=== PATIENT | female | born 1995 | race Caucasian/White ===

== ENCOUNTER 2020-12-27 16:13 | Inpatient (IN) | payer MEDICAID, OTHER ==
[~2020-12-27] VITALS: Ht 167.6 cm; Wt 106.2 kg
[2020-12-27 18:14] LABS: Basophils # (auto) 0 10 ^3/uL (0-0.2); Basophils % (auto) 0.5 % (0.0-2.0); Eosinophils # (auto) 0.2 10 ^3/uL (0-0.8); Eosinophils % (auto) 1.8 % (0.0-7.0); Hematocrit 39.9 % (36.0-46.0); Hemoglobin 13.9 g/dL (12.2-16.2); Lymphocytes # (auto) 2.5 10 ^3/uL (0.4-5.4); Lymphocytes % (auto) 23.5 % (10.0-50.0); Mean Corpuscular Hemoglobin 29.2 pg (28.0-32.0); Mean Corpuscular Hgb Conc. 34.8 g/dL (32.0-36.0); Mean Corpuscular Volume 83.9 fL (80.0-100.0); Monocytes # (auto) 0.9 10 ^3/uL (0-1.3); Monocytes % (auto) 8.1 % (0.0-12.0); Neutrophils % (auto) 66.1 % (37.0-80.0); Red Blood Cells 4.76 10^6/uL (4.0-5.20); Red Cell Distribution Width 13.4 % (11.8-14.3); White Blood Cell 10.7 10^3/uL (4.4-10.8)
[2020-12-27 18:34] LABS: Albumin 3.7 g/dL (3.4-5.0); Calcium 9.1 mg/dL (8.5-10.1); Potassium 4.2 mmol/L (3.5-5.1)
[2020-12-27 18:37] LABS: Bilirubin, Total 0.6 mg/dL (0.2-1.0); Total Protein 7.7 g/dL (6.4-8.2)
[2020-12-27] MEDS ORDERED: PIPERACILLIN-TAZO 4.5GM 100 ML IV ONE (19:00)
[2020-12-27] MEDS ORDERED: D5W/SOD CHL 0.45% 1,000 ML IV ONE ×2 (19:00→23:45)
[2020-12-27 20:17] LABS: Urine Bacteria MOD /hpf (None Seen); Urine Blood TRACE /uL (Negative); Urine Mucus FEW (None Seen); Urine Specific Gravity 1.037 (1.001-1.035); Urine WBC 4 /hpf (0 - 5)
[2020-12-27] MEDS ORDERED: ONDANSETRON HCL 4 MG/2 ML VIAL IV ONE ×2 (22:15→23:15)
[2020-12-27] MEDS ORDERED: MORPHINE SULF INJ 2 MG/ML SYRINGE 1ML IV ONE (22:15)
[2020-12-27] MEDS ORDERED: HYDROmorphone HCL 2 MG/ML VL IV PRN (23:45)
[2020-12-28] MEDS ORDERED: ACETAMINOPHEN 325 MG TAB PO PRN (07:00)
[2020-12-28] MEDS: LEVOTHYROXINE SODIUM 50 MCG TAB PO SCH (07:00)
[2020-12-28] MEDS ORDERED: NITROGLYCERIN 0.4 MG SL TAB SL PRN (07:00)
[2020-12-28] MEDS: D5W/SOD CHL 0.45% 1,000 ML IV SCH ×2 (07:00→20:30)
[2020-12-28] MEDS ORDERED: MORPHINE SULFATE 4 MG/ML SYR/VIAL IV PRN ×2 (07:00→09:30)
[2020-12-28] MEDS ORDERED: MORPHINE SULF INJ 2 MG/ML SYRINGE 1ML IV PRN (07:00)
[2020-12-28] MEDS ORDERED: ONDANSETRON HCL 4 MG/2 ML VIAL IV PRN (07:00)
[2020-12-28] MEDS ORDERED: HYDROcodone-ACET 5/325MG TAB PO PRN (07:00)
[2020-12-28 07:51] LABS: Basophils # (auto) 0 10 ^3/uL (0-0.2); Basophils % (auto) 0.6 % (0.0-2.0); Eosinophils # (auto) 0.2 10 ^3/uL (0-0.8); Eosinophils % (auto) 3.1 % (0.0-7.0); Hematocrit 40.1 % (36.0-46.0); Hemoglobin 13.6 g/dL (12.2-16.2); Lymphocytes # (auto) 1.5 10 ^3/uL (0.4-5.4); Lymphocytes % (auto) 20.1 % (10.0-50.0); Mean Corpuscular Hgb Conc. 33.9 g/dL (32.0-36.0); Mean Corpuscular Volume 85.4 fL (80.0-100.0); Monocytes # (auto) 0.7 10 ^3/uL (0-1.3); Monocytes % (auto) 8.7 % (0.0-12.0); Neutrophils # (auto) 5.1 10 ^3/uL (1.6-8.6); Neutrophils % (auto) 67.5 % (37.0-80.0); Red Cell Distribution Width 13.4 % (11.8-14.3); White Blood Cell 7.5 10^3/uL (4.4-10.8)
[2020-12-28 08:10] LABS: Albumin 3.5 g/dL (3.4-5.0); Calcium 8.8 mg/dL (8.5-10.1); INR 0.99 (0.9-1.15); Partial Thromboplastin Time 27.9 sec (23.6-33.0); Potassium 4.2 mmol/L (3.5-5.1)
[2020-12-28 08:13] LABS: BUN/Creatinine Ratio 11.6; Bilirubin, Total 0.8 mg/dL (0.2-1.0); Total Protein 7.6 g/dL (6.4-8.2)
[2020-12-28] MEDS ORDERED: SODIUM CHLORIDE LOCK 10 ML ONE (09:09)
[2020-12-28] MEDS ORDERED: ONDANSETRON HCL 4 MG/2 ML VIAL ONE (09:09)
[2020-12-28] MEDS ORDERED: PROPOFOL 10 MG/ML 20 ML IV ONE (09:09)
[2020-12-28] MEDS ORDERED: GLYCOPYRROLATE 0.2 MG/ML 1ML VIAL ONE (09:09)
[2020-12-28] MEDS ORDERED: MEPERIDINE HCL (25 MG/ML) 1ML VIAL ONE (09:09)
[2020-12-28] MEDS ORDERED: NEOSTIGMINE 1 MG/ML INJ (10mg/10ML VIAL) ONE (09:09)
[2020-12-28] MEDS ORDERED: MIDAZOLAM HCL 2MG/2ML 2ml VIAL (1mg/ml) ONE (09:09)
[2020-12-28] MEDS ORDERED: fentaNYL CITRATE 100 MCG/2 ML VL ONE (09:09)
[2020-12-28] MEDS ORDERED: ROCURONIUM 10MG/ML 10ML VIAL IV ONE (09:09)
[2020-12-28] MEDS ORDERED: BUPIVACAINE 0.25% INJ 50ML VIAL ONE (09:18)
[2020-12-28] MEDS ORDERED: METOCLOPRAMIDE HCL 5MG/ml INJ 2ml VIAL IV PRN (09:30)
[2020-12-28] MEDS ORDERED: HYDROmorphone HCL 2 MG/ML VL IV PRN (09:30)
[2020-12-28] MEDS ORDERED: ceFAZolin 1GM/50ML 100 ML IV ONE (09:46)
[2020-12-28] MEDS: FAMOTIDINE (10MG/ML) 2ML VL IV SCH ×2 (10:00→22:32)
[2020-12-28] MEDS: cefTRIAXone 1GM/50ML D5W 50 ML IV SCH (12:15)
[2020-12-28] MEDS ORDERED: LEVO175T66 PO (12:23)
[2020-12-28 13:00] VITALS: BP 108/70
[2020-12-28] MEDS ORDERED: PIPERACILLIN-TAZOB 3.375GM 100 ML IV SCH (14:00)
[2020-12-28 16:42] VITALS: BP 109/76
[2020-12-28 22:00] VITALS: BP 105/69
[2020-12-29 05:19] VITALS: BP 87/47
[2020-12-29 06:16] LABS: Basophils # (auto) 0 10 ^3/uL (0-0.2); Basophils % (auto) 0.1 % (0.0-2.0); Eosinophils # (auto) 0 10 ^3/uL (0-0.8); Eosinophils % (auto) 0.1 % (0.0-7.0); Hematocrit 41.3 % (36.0-46.0); Hemoglobin 14.1 g/dL (12.2-16.2); Lymphocytes # (auto) 1.3 10 ^3/uL (0.4-5.4); Lymphocytes % (auto) 13.3 % (10.0-50.0); Mean Corpuscular Hemoglobin 29.3 pg (28.0-32.0); Monocytes # (auto) 0.6 10 ^3/uL (0-1.3); Monocytes % (auto) 6.2 % (0.0-12.0); Neutrophils # (auto) 7.8 10 ^3/uL (1.6-8.6); Neutrophils % (auto) 80.3 % (37.0-80.0); Red Cell Distribution Width 13.2 % (11.8-14.3); White Blood Cell 9.7 10^3/uL (4.4-10.8)
[2020-12-29 06:20] LABS: Albumin 3.1 g/dL (3.4-5.0); Calcium 8.7 mg/dL (8.5-10.1); Potassium 3.7 mmol/L (3.5-5.1)
[2020-12-29 06:24] LABS: BUN/Creatinine Ratio 12.5; Bilirubin, Total 0.4 mg/dL (0.2-1.0); Total Protein 7.4 g/dL (6.4-8.2)
[2020-12-29] MEDS: LEVOTHYROXINE SODIUM 50 MCG TAB PO SCH (06:52)
[2020-12-29 09:00] VITALS: BP 96/65
[2020-12-29] MEDS: FAMOTIDINE (10MG/ML) 2ML VL IV SCH (09:26)
[2020-12-29] MEDS: cefTRIAXone 1GM/50ML D5W 50 ML IV SCH (09:27)
[2020-12-29] MEDS: D5W/SOD CHL 0.45% 1,000 ML IV SCH (12:17)
[2020-12-29 12:44] VITALS: BP 108/61
[2020-12-29 16:36] VITALS: BP 105/78
[2020-12-29 16:41] VITALS: BP 106/49
== END 2020-12-29 18:30 | disposition home or self-care (01) | DRG 233 ==
LOC: ER 16:13 → OVERFLOW 12-28 06:49 → WEST WING 12-28 12:16
PROVIDERS: ADMIT Nurse Practitioner Family; ATTEND Internal Medicine
PROC: 0W9G4ZZ Drainage of Peritoneal Cavity, Percutaneous Endoscopic Approach (ICD-10-PCS; 2020-12-28)
PROC: 0DTJ4ZZ Resection of Appendix, Percutaneous Endoscopic Approach (ICD-10-PCS; principal; 2020-12-28 09:58)
DX: K35.33 Acute appendicitis with perforation, localized peritonitis, and gangrene, with abscess (principal); E66.9 Obesity, unspecified; Z20.822 Contact with and (suspected) exposure to COVID-19; E89.0 Postprocedural hypothyroidism; Z85.850 Personal history of malignant neoplasm of thyroid; Z68.37 Body mass index [BMI] 37.0-37.9, adult
CPT/HCPCS: 36415; 74176; 80053; 81001; 83605; 84443; 84702; 85025; 85610; 85730; 87426; 96365; 96375; G0378; J0690; J0696; J2250; J2405; J2543; J2704; J3490